=== PATIENT | female | born 1960 | race Caucasian/White ===

== ENCOUNTER → 2016-08-17 | Day surgery (SDC) | payer BC ==
[2016-08-12 16:14] VITALS: BMI 26.5
[~2016-08-17] MED LIST: SODIUM CHLORIDE 0.9% 1,000 ML IV SCH
[2016-08-17 11:14] VITALS: RESP 18; TEMP 97.8
[2016-08-17 13:43] VITALS: BP 127/74; PULSE 71
--- NOTE | 2016-08-17 14:07 | P.PCN ---
Preoperative Diagnosis: Twelve-lead ECG Heart rate 67 beats a minute, DE and normal QRS narrow no delta waves no epsilon waves normal ST segments normal QT interval Tilt table test Baseline blood pressure 151/84 mmHg, Baseline heart rate 73 beats a minute Patient underwent tilt table test per protocol Significant change in heart rate or blood pressure She was recently supine at the end of the procedure Impression Normal heart rate and blood pressure response to upright tilting
== END ==
LOC: CATHEP 10:55
PROVIDERS: ATTEND Internal Medicine Clinical Cardiac Electrophysiology
DX: R55 Syncope and collapse (principal); F17.210 Nicotine dependence, cigarettes, uncomplicated; Z82.49 Family history of ischemic heart disease and other diseases of the circulatory system; E11.9 Type 2 diabetes mellitus without complications; I99.8 Other disorder of circulatory system
CPT/HCPCS: 93005; 93660

== ENCOUNTER 2024-05-18 01:05 | Emergency (ER) | payer BC ==
--- NOTE | 2024-05-18 01:34 | ED ---
General Adult HPI - General Chief complaint: Syncope Stated complaint: syncopy Time Seen by Provider: 05/18/24 01:08 Source: patient, family, EMS, RN notes reviewed Mode of arrival: EMS Limitations: no limitations - History of Present Illness Initial comments: 64-year-old female Emergency Department via EMS chief complaint syncopal episode. Patient states she has had syncopal episodes in the past states that she also has dizzy episodes. Patient states she To have a bowel movement and states that her was in room after she called for because she became very hot flushed feeling like she was going to pass out. states that she did have passing out episode in which she took a minute or 2 to become coherent again there was no seizure-like activity she states she just feels fatigued but denies chest pain palpitations denies headache, focal weakness no fevers or chills - Related Data Home Medications Medication Instructions Recorded Confirmed Meclizine [Antivert] 25 mg PO TID PRN 08/12/16 08/17/16 Allergies Allergy/AdvReac Type Severity Reaction Status Date / Time amoxicillin Allergy Rash/Hives Verified 05/18/24 01:17 Penicillins Allergy Rash/Hives Verified 05/18/24 01:17 Review of Systems ROS Statement: Those systems with pertinent positive or pertinent negative responses have been documented in the HPI. ROS Other: All systems not noted in ROS Statement are negative. Past Medical History Past Medical History: Syncope Additional Past Medical History / Comment(s): passed out 3 times 2 weeks ago and hit her head and recieved 25 stitches 2016 History of Any Multi-Drug Resistant Organisms: None Reported Past Surgical History: Cardiac Ablation Additional Past Surgical History / Comment(s): 2002 for SVT Past Anesthesia/Blood Transfusion Reactions: Family History of Problems w/ Anesthesia Additional Past Anesthesia/Blood Transfusion Reaction / Comment(s): difficulty coming out of anesthesia Past Psychological History: No Psychological Hx Reported Smoking Status: Current every day smoker Past Alcohol Use History: Rare Past Drug Use History: None Reported - Past Family History Father Family Medical History: Hypertension General Exam Limitations: no limitations General appearance: alert, in no apparent distress Head exam: Present: atraumatic, normocephalic, normal inspection Eye exam: Present: normal appearance, PERRL, EOMI. Absent: scleral icterus, conjunctival injection, periorbital swelling ENT exam: Present: normal exam, mucous membranes moist Neck exam: Present: normal inspection, full ROM. Absent: tenderness, meningismus, lymphadenopathy Respiratory exam: Present: normal lung sounds bilaterally. Absent: respiratory distress, wheezes, rales, rhonchi, stridor Cardiovascular Exam: Present: regular rate, normal rhythm, normal heart sounds. Absent: systolic murmur, diastolic murmur, rubs, gallop, clicks GI/Abdominal exam: Present: soft, normal bowel sounds. Absent: distended, tenderness, guarding, rebound, rigid Neurological exam: Present: alert, oriented X3, CN II-XII intact, reflexes normal. Absent: motor sensory deficit Course Vital Signs 05/18/24 05/18/24 01:08 02:13 Temperature 98.1 F Pulse Rate 90 80 Respiratory 20 19 Rate Blood Pressure 181/88 142/78 O2 Sat by Pulse 94 L 99 Oximetry EKG Findings - EKG Comments: EKG Findings:: EKG performed at 1: 11 sinus rhythm rate of 86 ID 127 QRS 102 QT /QTc 390/433 - EKG Results: EKG: interpreted by BEATRICE Medical Decision Making - Medical Decision Making Was pt. sent in by a medical professional or institution (, PA, PRINTING SERVICES COORDINATOR, urgent care, hospital, or halfway...) When possible be specific @ -No Did you speak to anyone other than the patient for history (EMS, parent, family, police, friend...)? What history was obtained from this source @ -No Did you review nursing and triage notes (agree or disagree)? Why? @ -I reviewed and agree with nursing and triage notes Were old charts reviewed (outside hosp., previous admission, EMS record, old EKG, old radiological studies, urgent care reports/EKG's, halfway records)? Report findings @ -No old charts were reviewed Differential Diagnosis (chest pain, altered mental status, abdominal pain women, abdominal pain men, vaginal bleeding, weakness, fever, dyspnea, syncope, headache, dizziness, GI bleed, back pain, seizure, CVA, palpatations, mental health, musculoskeletal)? @ -Differential Syncope: Valvular disease, hypertrophic cardiomyopathy, pulmonary embolism, tamponade, tachycardia, bradycardia, MA, hypovolemia, hemorrhage, dissection, anemia, intracranial hemorrhage, seizure, hypoglycemia, carbon monoxide poisoning, this is not meant to be an all-inclusive list. EKG interpreted by me (3pts min.). @ -As above X-rays interpreted by me (1pt min.). @ -Chest x-ray shows no acute cardiopulmonary process CT interpreted by me (1pt min.). @ -None done U/S interpreted by me (1pt. min.). @ -None done What testing was considered but not performed or refused? (CT, X-rays, U/S, labs)? Why? @ -None What meds were considered but not given or refused? Why? @ -None Did you discuss the management of the patient with other professionals (professionals i.e. Dr., PA, PRINTING SERVICES COORDINATOR, lab, RT, psych nurse, clinical social worker, pianos and organs salesperson, teacher, ground nuclear weapons assembly officer, casework supervisor)? Give summary @ -No Was smoking cessation discussed for >3mins.? @ -No Was critical care preformed (if so, how long)? @ -No Were there social determinants of health that impacted care today? How? (Homelessness, low income, unemployed, alcoholism, drug addiction, transportation, low edu. Level, literacy, decrease access to med. care, care home, rehab)? @ -No Was there de-escalation of care discussed even if they declined (Discuss DNR or withdrawal of care, Hospice)? DNR status @ -No What co-morbidities impacted this encounter? (DM, HTN, Smoking, COPD, CAD, Cancer, CVA, ARF, Chemo, Hep., AIDS, mental health diagnosis, sleep apnea, morbid obesity)? @ -None Was patient admitted / discharged? Hospital course, mention meds given and route, prescriptions, significant lab abnormalities, going to OR and other pertinent info. @ -Discharge patient states she feels greatly improved she is asymptomatic blood pressure is 135/77. Patient states that she prefers to go home at this time she will follow-up with her primary care physician return for any worsening changes symptoms. Undiagnosed new problem with uncertain prognosis? @ -No Drug Therapy requiring intensive monitoring for toxicity (Heparin, Nitro, Insulin, Cardizem)? @ -No Were any procedures done? @ -No Diagnosis/symptom? @ -Syncope Acute, or Chronic, or Acute on Chronic? @ -Acute Uncomplicated (without systemic symptoms) or Complicated (systemic symptoms)? @ -complicated Side effects of treatment? @ -No Exacerbation, Progression, or Severe Exacerbation? @ -No Poses a threat to life or bodily function? How? (Chest pain, USA, MA, pneumonia, PE, COPD, DKA, ARF, appy, cholecystitis, CVA, Diverticulitis, Homicidal, Suicidal, threat to staff... and all critical care pts) @ -No - Lab Data Result diagrams: 05/18/24 01:10 05/18/24 01:10 Lab Results 05/18/24 05/18/24 05/18/24 Range/Units 01:10 01:10 01:10 WBC 9.4 (3.8-10.6) k/uL RBC 4.92 (3.80-5.40) m/uL Hgb 15.9 (11.4-16.0) gm/dL Hct 47.7 H (34.0-46.0) % MCV 96.9 (80.0-100.0) fL MCH 32.3 (25.0-35.0) pg MCHC 33.4 (31.0-37.0) g/dL RDW 13.7 (11.5-15.5) % Plt Count 354 (150-450) k/uL MPV 8.0 Neutrophils % 58 % Lymphocytes % 32 % Monocytes % 4 % Eosinophils % 2 % Basophils % 1 % Neutrophils # 5.5 (1.3-7.7) k/uL Lymphocytes # 3.0 (1.0-4.8) k/uL Monocytes # 0.4 (0-1.0) k/uL Eosinophils # 0.2 (0-0.7) k/uL Basophils # 0.1 (0-0.2) k/uL PT 10.8 (10.0-12.5) sec INR 1.0 (<1.2) APTT 21.9 L (22.0-30.0) sec Sodium 135 L (137-145) mmol/L Potassium 3.9 (3.5-5.1) mmol/L Chloride 106 (98-107) mmol/L Carbon Dioxide 24 (22-30) mmol/L Anion Gap 5 mmol/L BUN 21 H (7-17) mg/dL Creatinine 0.76 (0.52-1.04) mg/dL Est GFR (CKD-EPI)AfAm >90 (>60 ml/min/1.73 sqM) Est GFR (CKD-EPI)NonAf 84 (>60 ml/min/1.73 sqM) Glucose 140 H (74-99) mg/dL Calcium 9.2 (8.4-10.2) mg/dL Magnesium 1.9 (1.6-2.3) mg/dL Total Bilirubin 0.5 (0.2-1.3) mg/dL AST 27 (14-36) U/L ALT 18 (4-34) U/L Alkaline Phosphatase 76 (38-126) U/L Troponin I (0.000-0.034) ng/mL Total Protein 6.6 (6.3-8.2) g/dL Albumin 4.4 (3.5-5.0) g/dL 05/18/24 Range/Units 01:10 WBC (3.8-10.6) k/uL RBC (3.80-5.40) m/uL Hgb (11.4-16.0) gm/dL Hct (34.0-46.0) % MCV (80.0-100.0) fL MCH (25.0-35.0) pg MCHC (31.0-37.0) g/dL RDW (11.5-15.5) % Plt Count (150-450) k/uL MPV Neutrophils % % Lymphocytes % % Monocytes % % Eosinophils % % Basophils % % Neutrophils # (1.3-7.7) k/uL Lymphocytes # (1.0-4.8) k/uL Monocytes # (0-1.0) k/uL Eosinophils # (0-0.7) k/uL Basophils # (0-0.2) k/uL PT (10.0-12.5) sec INR (<1.2) APTT (22.0-30.0) sec Sodium (137-145) mmol/L Potassium (3.5-5.1) mmol/L Chloride (98-107) mmol/L Carbon Dioxide (22-30) mmol/L Anion Gap mmol/L BUN (7-17) mg/dL Creatinine (0.52-1.04) mg/dL Est GFR (CKD-EPI)AfAm (>60 ml/min/1.73 sqM) Est GFR (CKD-EPI)NonAf (>60 ml/min/1.73 sqM) Glucose (74-99) mg/dL Calcium (8.4-10.2) mg/dL Magnesium (1.6-2.3) mg/dL Total Bilirubin (0.2-1.3) mg/dL AST (14-36) U/L ALT (4-34) U/L Alkaline Phosphatase (38-126) U/L Troponin I <0.012 (0.000-0.034) ng/mL Total Protein (6.3-8.2) g/dL Albumin (3.5-5.0) g/dL Disposition Clinical Impression: Vasovagal syncope Disposition: HOME SELF-CARE Condition: Stable Instructions (If sedation given, give patient instructions): Syncope (ED) Additional Instructions: Please return to the Emergency Department if symptoms worsen or any other concerns. Is patient prescribed a controlled substance at d/c from ED?: No Referrals: Carroll Oropeza MD [Primary Care Provider] - 1-2 days Time of Disposition: 03:02
[2024-05-18] MEDS: SODIUM CHLORIDE 0.9% 1,000 ML IV STA (01:38)
[2024-05-18] MEDS: SODIUM CHLORIDE 0.9% 500 ML 500 ML IV STA (01:39)
[2024-05-18] MEDS: MECLIZINE 12.5 MG TAB PO STA (01:41)
[2024-05-18 01:43] LABS: Basophils # (A) 0.1 k/uL (0-0.2); Basophils % (A) 1 %; Eosinophils # (A) 0.2 k/uL (0-0.7); Eosinophils % (A) 2 %; HCT 47.7 % (34.0-46.0); HGB 15.9 gm/dL (11.4-16.0); Lymphocytes % (A) 32 %; MCH 32.3 pg (25.0-35.0); MCHC 33.4 g/dL (31.0-37.0); MCV 96.9 fL (80.0-100.0); Monocytes # (A) 0.4 k/uL (0-1.0); Monocytes % (A) 4 %; Neutrophils # (A) 5.5 k/uL (1.3-7.7); Neutrophils % (A) 58 %; Platelet Count 354 k/uL (150-450); RBC 4.92 m/uL (3.80-5.40); RDW 13.7 % (11.5-15.5); WBC 9.4 k/uL (3.8-10.6)
[2024-05-18 01:56] LABS: ALT 18 U/L (4-34); AST 27 U/L (14-36); African American GFR (CKD) >90 (>60 ml/min/1.73 sqM); Albumin 4.4 g/dL (3.5-5.0); Alkaline Phosphatase 76 U/L (38-126); Anion Gap 5 mmol/L; Blood Urea Nitrogen 21 mg/dL (7-17); Calcium 9.2 mg/dL (8.4-10.2); Carbon Dioxide 24 mmol/L (22-30); Chloride 106 mmol/L (98-107); Glucose 140 mg/dL (74-99); Magnesium 1.9 mg/dL (1.6-2.3); Non-African American GFR(CKD) 84 (>60 ml/min/1.73 sqM); Potassium 3.9 mmol/L (3.5-5.1); Sodium 135 mmol/L (137-145); Total Bilirubin 0.5 mg/dL (0.2-1.3); Total Protein 6.6 g/dL (6.3-8.2)
[2024-05-18 01:59] LABS: Prothrombin Time 10.8 sec (10.0-12.5)
[2024-05-18 02:35] LABS: Partial Thromboplastin Time 21.9 sec (22.0-30.0)
--- NOTE | 2024-05-18 02:53 | XR ---
EXAM: XR Chest, 2 Views CLINICAL HISTORY: ITS.REASON XR Reason: syncope TECHNIQUE: Frontal and lateral views of the chest. COMPARISON: X-ray chest: 01/27/2016 FINDINGS: Lungs: Hyperinflated lungs: Possibly COPD. No consolidation. Pleural space: Unremarkable. No pneumothorax. Heart: Unremarkable. No cardiomegaly. Mediastinum: Unremarkable. Normal mediastinal contour. Bones/joints: Osteopenia.. No acute fracture.. IMPRESSION: No acute cardiopulmonary process. .
[2024-05-18 03:00] VITALS: RESP 18
[2024-05-18 03:24] VITALS: BP 152/88; PULSE 79; TEMP 97.6
== END 2024-05-18 03:24 | disposition home or self-care (01) ==
LOC: EC 01:05
DX: R55 Syncope and collapse (principal); F17.200 Nicotine dependence, unspecified, uncomplicated; Z88.1 Allergy status to other antibiotic agents; Z88.0 Allergy status to penicillin
CPT/HCPCS: 36415; 71046; 80053; 83735; 84484; 85025; 85610; 85730; 93005; 96360; 96361; 99285

== ENCOUNTER 2024-09-06 07:11 | Day surgery (SDC) | payer BC ==
[~2024-09-06 07:11] MED LIST changes: +ALPRAZolam 0.25 MG TAB PO PRN; +ALPRAZolam 0.5 MG TAB PO PRN; +ASPIRIN 325 MG TAB PO STA; +HEPARIN SODIUM,PORCINE (1 ML) 2,500 UNIT in SODIUM CHLORIDE 0.9% 250 ML IRRIGATION PRN; +HEPARIN SODIUM,PORCINE 10,000 UNIT in SODIUM CHLORIDE 0.9% 1,000 ML IRRIGATION PRN; +NITROGLYCERIN SL TABS 0.4 MG TAB SUBLINGUAL PRN; -SODIUM CHLORIDE 0.9% 1,000 ML IV SCH; +SODIUM CHLORIDE 0.9% 1,000 ML in EMPTY BAG 1 BAG IV SCH
[2024-09-06] MEDS: IV FLUID CONTINUATION 1,000 ML IV ONE (07:25)
[2024-09-06 07:36] VITALS: RESP 16; TEMP 97.8
[2024-09-06] MEDS: fentaNYL (PF) 50 MCG/ML 2 ML AMP IVP ONE ×2 (08:37→08:42)
[2024-09-06] MEDS: MIDAZOLAM 2 MG/2 ML VIAL IVP ONE ×2 (08:37→08:42)
[2024-09-06] MEDS: LIDOCAINE 1% INJ 10MG/ML (20 ML MDV) SQ ONE (08:39)
[2024-09-06] MEDS: VERAPAMIL SYRINGE (5 MG/10 ML) INTRAARTER ONE (08:40)
[2024-09-06 08:42] LABS: African American GFR (CKD) >90 (>60 ml/min/1.73 sqM); Anion Gap 4 mmol/L; Blood Urea Nitrogen 21 mg/dL (7-17); Calcium 8.8 mg/dL (8.4-10.2); Carbon Dioxide 29 mmol/L (22-30); Chloride 104 mmol/L (98-107); Glucose 98 mg/dL (74-99); Non-African American GFR(CKD) >90 (>60 ml/min/1.73 sqM); Potassium 5.4 mmol/L (3.5-5.1); Sodium 137 mmol/L (137-145)
[2024-09-06] MEDS: HEPARIN SODIUM 1,000 UN/ML (10ML VL) IVP ONE (08:43)
[2024-09-06] MEDS: HEPARIN SODIUM,PORCINE (1 ML) 2,500 UNIT in SODIUM CHLORIDE 0.9% 250 ML IRRIGATION ONE (08:45)
[2024-09-06] MEDS: HEPARIN SODIUM,PORCINE 10,000 UNIT in SODIUM CHLORIDE 0.9% 1,000 ML IRRIGATION ONE (08:45)
--- NOTE | 2024-09-06 08:52 | P.CARDCATH ---
Description of Procedure: PROCEDURES PERFORMED: Left heart catheterization, bilateral coronary angiography, ultrasound guided arterial access INDICATION: Abnormal stress test CONSENT:The risks, benefits and alternative therapies for the above-mentioned procedure and for both sedation/analgesia as well as necessary blood product administration, if indicated, as they pertain to this patient were discussed with the patient. The patient has indicated understanding and acceptance of the risks and procedures discussed. PROCEDURE: After the risks, benefits and alternatives of the above mentioned procedure explained in detail with the patient, informed consent was obtained. Patient was taken to the catheterization lab and prepped and draped in usual fashion. Ultrasound guidance was used to assess for arterial access. 1% lidocaine was used to anesthetize the right radial artery. A 6-Belgian sheath was placed in the right radial artery using modified Seldinger technique and ultrasound guidance. Left coronary angiography was performed with a 5-Belgian JL 3.5 catheter and right coronary angiography was performed with a 5-Belgian FR5 catheter in various views. A 5-Belgian FR5 catheter was inserted into the left ventricle and pressure measurements were obtained. The right radial sheath was removed and a TR band was placed with hemostasis achieved. The patient tolerated the procedure well. Patient was transported back to the post catheterization holding area in stable condition. Conscious Sedation: Patient was monitored under the direct supervision of myself for conscious sedation using Versed and fentanyl for a total duration of 9 minutes HEMODYNAMICS: Aorta: 138/75 LV: 141/6, LVEDP 12 SELECTIVE CORONARY ARTERIOGRAPHY: LEFT MAIN: The left main is a large caliber vessel which bifurcates into the LAD and circumflex. There is no significant stenosis. LEFT ANTERIOR DESCENDING CORONARY ARTERY: LAD is a large caliber vessel which wr aps around to the apex. There are mild luminal irregularities of the LAD. LEFT CIRCUMFLEX CORONARY ARTERY: Left circumflex is a moderate caliber vessel without significant stenosis. RIGHT CORONARY ARTERY: The right coronary artery is a large caliber vessel which gives off a PDA and PLV branch and is the dominant vessel. There is no significant stenosis. FINAL IMPRESSION: 1. Relatively normal coronary arteries as described other than mild luminal irregularities of the LAD. 2. Normal left sided filling pressures PLAN: 1. Aggressive risk factor modification per most recent ACC/AHA guidelines. 2. Follow-up in the office in 1-2 weeks.
[2024-09-06] MEDS: IOPAMIDOL-370 100ML BTL INJ ONE (08:59)
[2024-09-06 13:32] VITALS: BP 121/57; PULSE 56
== END 2024-09-06 12:01 | disposition home or self-care (01) ==
LOC: CATHCVL 07:11
PROVIDERS: ATTEND Internal Medicine
DX: I65.23 Occlusion and stenosis of bilateral carotid arteries (principal); I95.1 Orthostatic hypotension; I34.1 Nonrheumatic mitral (valve) prolapse; J44.9 Chronic obstructive pulmonary disease, unspecified; Z82.49 Family history of ischemic heart disease and other diseases of the circulatory system; F17.210 Nicotine dependence, cigarettes, uncomplicated; Z86.79 Personal history of other diseases of the circulatory system; Z88.0 Allergy status to penicillin; Z79.899 Other long term (current) drug therapy
CPT/HCPCS: 93458; 80048; J2250; J1644 ×3; J2003; J3010; Q9967